=== PATIENT | female | born 1970 | race Hispanic/Latino ===

== ENCOUNTER → 2016-11-05 | Outpatient (CLI) | payer OTHER ==
[~2016-11-05] VITALS: Ht 154.9 cm; Wt 71.7 kg
[~2016-11-05] MED LIST: GLYCOPYRROLATE INJ 0.2 MG/ML 2 ML VIAL As Ordered ONE; LIDOCAINE 2% INJ 100 MG/5 ML SDV (FOR ANES.) As Ordered ONE; NEXI40CA PO; NORCOTAB PO; NS 1,000 ML IV ONE; PROPOFOL 200 MG/20 ML VIAL As Ordered ONE; SENN1TAB2 PO
--- NOTE | 2016-11-05 13:22 | ROOR ---
Patient Name: Dominic Villagran Procedure Date: 11/05/2016 12:59 PM Date of : 1970 Age: 46 Room: [facility] Gender: Female Note Status: Finalized Procedure: Upper GI endoscopy Indications: Heartburn, Unexplained chest pain Providers: Jose Masters MD Referring MD: DESTINY DIXON MD Requesting Provider: Medicines: Monitored Anesthesia Care Complications: No immediate complications. Procedure: Pre-Anesthesia Assessment: - The heart rate, respiratory rate, oxygen saturations, blood pressure, adequacy of pulmonary ventilation, and response to care were monitored throughout the procedure. The Endoscope was introduced through the mouth, and advanced to the second part of duodenum. The upper GI endoscopy was accomplished without difficulty. The patient tolerated the procedure well. Findings: The Z-line was regular and was found 35 cm from the incisors. The exam was otherwise without abnormality. The exam of the stomach was otherwise normal. The exam of the duodenum was otherwise normal. Impression: - Z-line regular, 35 cm from the incisors. - The examination was otherwise normal. - No specimens collected. - The examination was otherwise normal. Recommendation: - Patient has a contact number available for emergencies. The signs and symptoms of potential delayed complications were discussed with the patient. Return to normal activities tomorrow. Written discharge instructions were provided to the patient. - Discharge patient to home. - Follow an antireflux regimen. - Continue present medications. - Return to referring physician. - The findings and recommendations were discussed with the patient's family. Jose Masters MD Jose Masters MD 11/05/2016 1:21:49 PM This report has been signed electronically. Number of Addenda: 0 Note Initiated On: 11/05/2016 12:59 PM Estimated Blood Loss: Estimated blood loss: none.
[2016-11-05 13:43] VITALS: BP 125/69
== END | disposition home or self-care (01) ==
LOC: M OPP 10:23
PROVIDERS: ATTEND Internal Medicine Gastroenterology
DX: R12 Heartburn (principal); R07.89 Other chest pain; K21.9 Gastro-esophageal reflux disease without esophagitis; M19.90 Unspecified osteoarthritis, unspecified site; Z88.8 Allergy status to other drugs, medicaments and biological substances; Z79.899 Other long term (current) drug therapy; Z80.8 Family history of malignant neoplasm of other organs or systems; Z80.3 Family history of malignant neoplasm of breast

== ENCOUNTER 2016-11-25 04:52 | Inpatient (IN) | payer OTHER ==
[~2016-11-25] VITALS: Ht 160 cm; Wt 72.3 kg
[~2016-11-25 04:52] MED LIST changes: -GLYCOPYRROLATE INJ 0.2 MG/ML 2 ML VIAL As Ordered ONE; -LIDOCAINE 2% INJ 100 MG/5 ML SDV (FOR ANES.) As Ordered ONE; -NORCOTAB PO; -NS 1,000 ML IV ONE; -PROPOFOL 200 MG/20 ML VIAL As Ordered ONE; -SENN1TAB2 PO
[2016-11-25 07:41] LABS: BASO % 0.4 % (0.0-1.0); EOS % 0.5 % (0.0-3.0); LARGE UNSTAINED CELL # 0.1 K/mm3 (0.0-0.4); LARGE UNSTAINED CELL % 0.5 % (0.0-4.0); LYMPH # 1.6 K/mm3 (1.5-4.5); LYMPH % 16.1 % (24.0-44.0); MEAN CORPUSCULAR HEMOGLOBIN 29.2 pg (27.0-33.0); MEAN CORPUSCULAR VOLUME 91.1 fl (80.0-96.0); MONO # 0.2 K/mm3 (0.0-0.8); NEUTROPHILS # 7.8 K/mm3 (1.8-7.7); NEUTROPHILS % 80.4 % (36.0-66.0); PLATELET COUNT, AUTOMATED 367 k/mm3 (150-450); RED CELL DISTRIBUTION WIDTH 14.5 % (11.5-14.5); WHITE BLOOD COUNT 9.7 K/mm3 (4.0-10.0)
[2016-11-25] MEDS ORDERED: ONDANSETRON 4MG/2ML VIAL (J2405) IV ONE (07:45)
[2016-11-25] MEDS ORDERED: MORPHINE 4 MG/ML 1ML SYRINGE IV ONE (07:45)
[2016-11-25 07:58] LABS: ALBUMIN 3.3 GM/DL (3.2-5.2); ALBUMIN/GLOBULIN RATIO 0.92 (1.00-1.93); ALKALINE PHOSPHATASE 66 U/L (45-117); ALT/SGPT 13 U/L (12-78); AMYLASE 64 U/L (25-115); ANION GAP 8 MEQ/L (8-16); AST/SGOT 11 U/L (15-37); BILIRUBIN,DIRECT < 0.1 MG/DL (0.0-0.2); BILIRUBIN,TOTAL 0.2 MG/DL (0.2-1.0); BLOOD UREA NITROGEN 17 MG/DL (7-18); CALCIUM LEVEL 7.7 MG/DL (8.5-10.1); CARBON DIOXIDE LEVEL 24 MEQ/L (21-32); CHLORIDE LEVEL 110 MEQ/L (98-107); CREATININE FOR GFR 0.56 MG/DL (0.55-1.02); GLOMERULAR FILTRATION RATE > 60.0 (>58); GLUCOSE, FASTING 100 MG/DL (70-105); POTASSIUM SERUM 3.7 MEQ/L (3.5-5.1); SODIUM LEVEL 142 MEQ/L (136-145); TOTAL PROTEIN 6.9 GM/DL (6.4-8.2)
--- NOTE | 2016-11-25 08:25 | REP ---
Acute abdominal series three views: There are no comparisons. PA chest: Lung godinez are clear. Cardiac size is normal. The kaleb, mediastinum, and bony thorax are unremarkable. There is no free subdiaphragmatic air. Impression: Negative PA chest. Abdomen, supine upright views: The bowel gas pattern is normal. There ligation clips in the pelvis bilaterally. The skeletal structures and soft tissues are otherwise unremarkable. Impression: Normal bowel gas pattern Signed by Naveen Sim MD 11/25/2016 08:16 A
--- NOTE | 2016-11-25 09:24 | REP ---
Abdominal right upper quadrant ultrasound, emergency room request: There is a positive Dinh's sign to transducer pressure. There is a non mobile calculus in the gallbladder neck. There is circumferential gallbladder wall thickening up to 5.1 mm. There is a trace of pericholecystic fluid. The common duct is mildly dilated measuring up to 7.4 mm. There is no intrahepatic biliary duct dilatation. The hepatic parenchyma is homogeneous and unremarkable. The pancreas is obscured by bowel gas. There is no right renal hydronephrosis, calculus, mass or cyst. The right kidney is normal size measuring 9.6 cm cranial caudad length. There is no right upper quadrant abdominal free fluid. Impression: Findings are compatible with acute cholecystitis with a non mobile calculus in the gallbladder neck and diffuse gallbladder wall thickening. There is a trace of pericholecystic fluid. The common duct is mildly dilated measuring up to 7.4 mm. Signed by Naveen Sim MD 11/25/2016 09:16 A
[2016-11-25] MEDS ORDERED: NS 1,000 ML IV ONE (10:45)
[2016-11-25] MEDS ORDERED: MORPHINE 2 MG/ML 1ML SYRINGE IV PRN (16:45)
[2016-11-25] MEDS ORDERED: ACETAMINOPHEN TAB 650MG DOSE (2X325MG) PO PRN (16:45)
[2016-11-25] MEDS ORDERED: ONDANSETRON 4MG/2ML VIAL (J2405) IV PRN (16:45)
[2016-11-25] MEDS ORDERED: KETOROLAC 30 MG/ML VIAL (J1885) IV PRN (16:45)
[2016-11-25] MEDS ORDERED: MOM 30ML SUSPENSION UDC PO PRN (16:45)
--- NOTE | 2016-11-25 17:10 | REP ---
MRCP: MRCP exam is accomplished utilizing multiple heavily T2-weighted sequences in the axial and coronal planes with MIP reconstruction images. There is no evidence of significant intrahepatic biliary dilatation. The common bile duct is upper limits of normal at 7 mm. No definite stricture or filling defect is seen in the common bile duct. The pancreatic duct is normal in caliber. Gallbladder demonstrates an intraluminal stone with diffuse gallbladder wall thickening and edema. IMPRESSION: Common bile duct upper limits of normal at 7 mm in maximum diameter. No common bile duct stone is seen. Gallbladder contains a calculus and the gallbladder wall is diffusely thickened and edematous suggesting cholecystitis. Signed by Naveen Willis MD 11/26/2016 05:05 P
[2016-11-25 17:30] VITALS: BP 132/84
[2016-11-25] MEDS: PIPERACILLIN/TAZOBACTAM SOD 3.375 GM in D5W MINI-BAG PLUS 50 ML IV SCH (17:48)
[2016-11-25] MEDS: PANTOPRAZOLE 40MG INJ (PROTONIX) (C9113) IV SCH (17:48)
[2016-11-25] MEDS: LR 1,000 ML IV SCH (18:28)
[2016-11-25] MEDS: NORCO, ANEXSIA 5/325MG TABLET (HYDROcodone/ACETAMINOPHEN) PO PRN (18:28)
[2016-11-25 20:00] VITALS: BP 107/55
[2016-11-25] MEDS: HEPARIN SOD (PORCINE) 5000 UNITS/ML VIAL SC SCH (22:34)
[2016-11-25] MEDS: SENOKOT S TAB PO SCH (22:34)
[2016-11-26] VITALS (9 sets, daily range): BP systolic 92–105; BP diastolic 46–79
[2016-11-26] MEDS: PIPERACILLIN/TAZOBACTAM SOD 3.375 GM in D5W MINI-BAG PLUS 50 ML IV SCH ×5 (00:58→23:54)
[2016-11-26] MEDS: LR 1,000 ML IV SCH ×3 (04:00→16:38)
[2016-11-26] MEDS: HEPARIN SOD (PORCINE) 5000 UNITS/ML VIAL SC SCH ×3 (06:51→21:46)
[2016-11-26 07:03] LABS: MEAN CORPUSCULAR HGB CONC 33.5 g/dl (32.0-36.5); MEAN CORPUSCULAR VOLUME 89.7 fl (80.0-96.0); RED CELL DISTRIBUTION WIDTH 14.2 % (11.5-14.5); WHITE BLOOD COUNT 8.8 K/mm3 (4.0-10.0)
[2016-11-26 07:11] LABS: ALBUMIN 2.8 GM/DL (3.2-5.2); ALBUMIN/GLOBULIN RATIO 0.82 (1.00-1.93); ALKALINE PHOSPHATASE 59 U/L (45-117); ALT/SGPT 15 U/L (12-78); ANION GAP 8 MEQ/L (8-16); AST/SGOT 10 U/L (15-37); BILIRUBIN,TOTAL 0.5 MG/DL (0.2-1.0); BLOOD UREA NITROGEN 9 MG/DL (7-18); CALCIUM LEVEL 7.6 MG/DL (8.5-10.1); CARBON DIOXIDE LEVEL 24 MEQ/L (21-32); CHLORIDE LEVEL 111 MEQ/L (98-107); CREATININE FOR GFR 0.66 MG/DL (0.55-1.02); GLOMERULAR FILTRATION RATE > 60.0 (>58); GLUCOSE, FASTING 82 MG/DL (70-105); MAGNESIUM LEVEL 2.3 MG/DL (1.8-2.4); POTASSIUM SERUM 3.8 MEQ/L (3.5-5.1); SODIUM LEVEL 143 MEQ/L (136-145); TOTAL PROTEIN 6.2 GM/DL (6.4-8.2)
[2016-11-26] MEDS: PANTOPRAZOLE 40MG INJ (PROTONIX) (C9113) IV SCH (08:49)
[2016-11-26] MEDS: SENOKOT S TAB PO SCH ×2 (08:49→21:46)
[2016-11-26] MEDS ORDERED: MIDAZOLAM INJ 2 MG/2 ML VIAL (J2250) As Ordered ONE (09:58)
[2016-11-26] MEDS ORDERED: PROPOFOL 200 MG/20 ML VIAL As Ordered ONE (09:58)
[2016-11-26] MEDS ORDERED: LIDOCAINE 2% INJ 100 MG/5 ML SDV (FOR ANES.) As Ordered ONE (09:58)
[2016-11-26] MEDS ORDERED: fentaNYL 250 MCG/5 ML INJECTION (J3010) As Ordered ONE (09:58)
[2016-11-26] MEDS ORDERED: ROCURONIUM BROMIDE 50 MG/5 ML VIAL/SYRINGE As Ordered ONE (09:58)
[2016-11-26] MEDS ORDERED: BUPIVACAINE/EPIN 0.25% 30 ML VIAL As Ordered ONE (10:44)
[2016-11-26] MEDS ORDERED: ONDANSETRON 4MG/2ML VIAL (J2405) As Ordered ONE (11:06)
[2016-11-26] MEDS ORDERED: GLYCOPYRROLATE INJ 0.2 MG/ML 2 ML VIAL As Ordered ONE (11:06)
[2016-11-26] MEDS ORDERED: NEOSTIGMINE 1MG/ML 5 ML SYRINGE (J2710) As Ordered ONE (11:06)
[2016-11-26] MEDS ORDERED: ePHEDrine SULFATE 25 MG/5 ML(5MG/ML) SYRINGE As Ordered ONE (11:08)
[2016-11-26] MEDS ORDERED: hydrALAZINE INJ 20 MG/ML VIAL As Ordered ONE (11:18)
[2016-11-26] MEDS: fentaNYL 100 MCG/2 ML INJECTION (J3010) IV PRN ×8 (11:52→13:00)
[2016-11-26] MEDS ORDERED: fentaNYL 100 MCG/2 ML INJECTION (J3010) As Ordered ONE ×2 (11:52→12:09)
[2016-11-26] MEDS ORDERED: MEPERIDINE INJ 25 MG/ML VIAL (J2175) As Ordered ONE (12:09)
[2016-11-26] MEDS: MEPERIDINE INJ 25 MG/ML VIAL (J2175) IV PRN ×2 (12:10→12:18)
[2016-11-26] MEDS ORDERED: LR 1,000 ML IV SCH (12:15)
[2016-11-26] MEDS ORDERED: ONDANSETRON 4MG/2ML VIAL (J2405) IV PRN (12:15)
[2016-11-26] MEDS ORDERED: PERCOCET 5MG/325MG TAB PO PRN (12:15)
[2016-11-26] MEDS ORDERED: METOCLOPRAMIDE INJ 10MG/2ML VIAL (J2765) IV PRN (12:30)
[2016-11-26] MEDS ORDERED: PERCOCET 5MG/325MG TAB As Ordered ONE (13:05)
[2016-11-26] MEDS: NORCO, ANEXSIA 5/325MG TABLET (HYDROcodone/ACETAMINOPHEN) PO PRN ×2 (17:35→23:54)
--- NOTE | 2016-11-26 19:37 | HPE ---
DATE OF ADMISSION: 11/25/2016 CHIEF COMPLAINT: Abdominal pain. HISTORY OF PRESENT ILLNESS: The patient is 46-year-old female who presents with a day and half history of increasing right upper quadrant abdominal pain that occurred after eating. She came into the emergency room for evaluation. Apparently she has had these intermittent right upper quadrant pains for a couple months and have just been getting progressively worse, all of which have occurred after eating meals. They usually subside after a couple of hours but this one did not. In the ER she had normal vitals, normal white count, normal labs, however, her ultrasound did show wall thickening of the gallbladder up to 5 ml, a dilated common bile duct at 7.4 mm and a stone in the neck of the gallbladder. Because of this I was called to evaluate. Due to the large common bile duct I recommended they check an MRCP in the ER, which ended up being normal as well for no signs of any choledocholithiasis. Currently patient is still having significant pain and nausea, no vomiting or fevers. No problems with urination or bowel movements. No recent travel and no recent illnesses and no sick family members or friends. PAST MEDICAL HISTORY: Gastroesophageal reflux disease. Low back pain. PAST SURGICAL HISTORY: Right knee surgery, tubal ligation. ALLERGIES: IBUPROFEN, OXAPROZIN. HOME MEDICATIONS: Please see medical record. SOCIAL HISTORY: Denies drug, alcohol, tobacco usage. FAMILY HISTORY: Noncontributory. REVIEW OF SYSTEMS: Pertinent positives and negative as stated in HPI. PHYSICAL EXAMINATION: General alert and oriented times three. No acute distress. Vitals: Temperature 97.8, pulse 54, respirations 16, blood pressure 123/58, pulse ox 99% on room air. HEENT: Pupils equal, round, react to light and accommodation. Heart: S1-S2, regular rate and rhythm. Lungs: Clear to auscultation bilaterally. Abdomen: Soft, tender to palpation right upper quadrant. No rebound, guarding, or rigidity. No signs of any ventral or umbilical hernias. Extremities: No clubbing, cyanosis or edema. LABORATORY DATA: White count 9.7, hemoglobin 11.3, platelets 367, total bilirubin 0.2. ALT 13, alkaline phosphatase 66, lipase 167. IMAGING STUDIES: Ultrasound of the gallbladder shows common bile duct 7.4 mm, wall thickening 5.1 mm, nonmobile calculus in the gallbladder, positive Dinh's sign. MRI: Common bile duct upper limits of normal at 7 mm. No sign of common bile duct stones are seen. Gallbladder contained a calculus and gallbladder wall is diffusely thickened and edematous suggesting cholecystitis. ASSESSMENT/PLAN: The patient is a 46-year-old female with signs and symptoms consistent with acute calculus cholecystitis. Recommendation is to proceed with laparoscopic, possible open cholecystectomy. She will be kept overnight. She can have clear liquid diet this evening, nothing by mouth (npo) after midnight. We will plan for surgery tomorrow morning. Risks and benefits of the procedure not limited to but including bleeding, infection, hernia formation, damage to surrounding structures, need for further surgery were discussed in detail with the patient. Informed consent was obtained and procedure is planned for tomorrow morning.
[2016-11-27] VITALS: BP 91/47
[2016-11-27] MEDS: LR 1,000 ML IV SCH (00:38)
[2016-11-27 04:00] VITALS: BP 96/50
[2016-11-27] MEDS: HEPARIN SOD (PORCINE) 5000 UNITS/ML VIAL SC SCH (05:27)
[2016-11-27] MEDS: PIPERACILLIN/TAZOBACTAM SOD 3.375 GM in D5W MINI-BAG PLUS 50 ML IV SCH (05:27)
[2016-11-27 07:26] LABS: MEAN CORPUSCULAR HEMOGLOBIN 29.2 pg (27.0-33.0); MEAN CORPUSCULAR HGB CONC 32.8 g/dl (32.0-36.5); RED CELL DISTRIBUTION WIDTH 14.6 % (11.5-14.5); WHITE BLOOD COUNT 8.9 K/mm3 (4.0-10.0)
[2016-11-27 07:45] LABS: ALBUMIN 2.8 GM/DL (3.2-5.2); ALBUMIN/GLOBULIN RATIO 0.93 (1.00-1.93); ALKALINE PHOSPHATASE 65 U/L (45-117); ALT/SGPT 52 U/L (12-78); ANION GAP 10 MEQ/L (8-16); AST/SGOT 56 U/L (15-37); BILIRUBIN,TOTAL 0.6 MG/DL (0.2-1.0); BLOOD UREA NITROGEN 8 MG/DL (7-18); CALCIUM LEVEL 7.5 MG/DL (8.5-10.1); CARBON DIOXIDE LEVEL 25 MEQ/L (21-32); CHLORIDE LEVEL 107 MEQ/L (98-107); CREATININE FOR GFR 0.79 MG/DL (0.55-1.02); GLOMERULAR FILTRATION RATE > 60.0 (>58); GLUCOSE, FASTING 86 MG/DL (70-105); MAGNESIUM LEVEL 2.2 MG/DL (1.8-2.4); POTASSIUM SERUM 3.4 MEQ/L (3.5-5.1); SODIUM LEVEL 142 MEQ/L (136-145); TOTAL PROTEIN 5.8 GM/DL (6.4-8.2)
[2016-11-27 08:00] VITALS: BP 94/50
[2016-11-27] MEDS ORDERED: NORCOTAB PO (08:06)
[2016-11-27] MEDS ORDERED: SENN1TAB2 PO (08:06)
[2016-11-27] MEDS: PANTOPRAZOLE 40MG INJ (PROTONIX) (C9113) IV SCH (09:05)
[2016-11-27] MEDS: SENOKOT S TAB PO SCH (09:05)
--- NOTE | 2016-11-28 10:04 | RO ---
DATE OF PROCEDURE: 11/26/2016 PREOPERATIVE DIAGNOSIS: Acute calculus cholecystitis. POSTOPERATIVE DIAGNOSIS: Same. PROCEDURE: Laparoscopic cholecystectomy. SURGEON: Dr. Dorado PLUMBING DRAFTER: None. ANESTHESIA: General. ESTIMATED BLOOD LOSS: 5 mL. COMPLICATIONS: None. INDICATIONS FOR PROCEDURE: Patient is a 46-year-old female who presents with right upper quadrant abdominal pain and found have acute calculus cholecystitis. The recommendation was to proceed with laparoscopic, possible open cholecystectomy. The risks and benefits of the procedure, not limited to, but including bleeding, infection, hernia formation, damage to surrounding structures, need for further surgery were discussed in detail with the patient. Informed consent was obtained and the procedure was planned. DESCRIPTION OF PROCEDURE: The patient was brought back to operating room #6. After sufficient sedation, the abdomen was sterilely prepped and draped. Next, a time-out was done to confirm proper patient and proper procedure. Following that, a stab incision was made in the left upper quadrant and Veress needle was inserted and the abdomen was insufflated to 15 mmHg. Next, a 5 mm infraumbilical incision was made. Incision was carried down to the level of the fascia. A 5 mm Optiview port was used to gain access to the abdomen. Once the abdomen was entered. The Veress needle site was examined and there were no signs of injury. Veress needle was then removed. A left 5 mm port was then placed subxiphoid and two 5 mm ports in the right upper quadrant. The right upper quadrant was examined. The fundus of the gallbladder was grasped, elevated up towards the right shoulder. Omental adhesions were taken down using blunt dissection. Cystic duct and cystic artery were both clearly dissected free using blunt dissection. They were both doubly clipped and cut. The gallbladder was then removed from gallbladder fossa using electrocautery. Once the gallbladder was removed, electrocautery was used to help control hemostasis in the liver bed. Once that was completed, the abdomen was desufflated. Skin incisions were closed with #4-0 Vicryl subcuticular sutures. The abdomen was cleaned and dried. Steri-Strips, 4x4, and tape were applied, thus ending procedure.
--- NOTE | 2016-11-29 14:12 | DSES ---
DATE OF ADMISSION: 11/25/2016 DATE OF DISCHARGE: 11/27/2016 ADMISSION DIAGNOSIS: Acute calculus cholecystitis. DISCHARGE DIAGNOSIS: Acute calculus cholecystitis. HOSPITAL COURSE: The patient is a 46-year-old female who presented to the emergency room on 11/25/2016 and found to have acute cholecystitis with right upper quadrant pain as well as ultrasound findings of gallbladder wall thickening with a stone in the neck of the gallbladder. She was evaluated in the evening of 11/25/2016 and planned for surgery on the following morning. On the morning of 11/25/2016, she underwent laparoscopic cholecystectomy. The surgery was uneventful. She went back to her room postoperatively and was started on a regular diet. She was eating well ambulating well, Pain was much improved. No fevers overnight. This morning she is continuing to feel much improved. Denies any fevers or chills. No nausea or vomiting. Pain is controlled. Incisions are clean, dry, intact. Plan is to discharge home today. She will followup with me in the office in 2 weeks. She can shower when she gets home. No lifting more than 20 pounds. No soaking her incisions for 5 days. She had no questions and she will be discharged home today. Will followup with me and call with any questions.
== END 2016-11-27 09:55 | disposition home or self-care (01) | DRG 419 ==
LOC: M ED 04:52 → M ED INP 16:38 → M PED 17:25
PROVIDERS: ADMIT Surgery; ATTEND Surgery
PROC: 0FT44ZZ Resection of Gallbladder, Percutaneous Endoscopic Approach (ICD-10-PCS; principal; 2016-11-26 14:30)
DX: K80.00 Calculus of gallbladder with acute cholecystitis without obstruction (principal); K21.9 Gastro-esophageal reflux disease without esophagitis; M54.5 Low back pain; Z88.8 Allergy status to other drugs, medicaments and biological substances